=== PATIENT | female | born 1995 | race Caucasian/White ===

== ENCOUNTER 2016-10-19 08:37 | Emergency (ER) | payer OTHER ==
--- NOTE | 2016-10-19 08:38 | ED AMS/SEIZURE/WEAK/DIZZY ---
History of Present Illness General Chief Complaint: Seizure Stated Complaint: BIBA SEIZURE Past History Travel History Traveled to [place] past 21 day No Progress Plan of Care: Orders Procedure Date/time Status URINE DRUGS OF ABUSE 10/19 837 Active URINE 10/19 837 Active Departure Departure Condition: Stable Departure Forms: Customer Survey General Discharge Information
[2016-10-19] MEDS ORDERED: TRINESSA TABLE1 EACH PO (08:53)
[2016-10-19] MEDS ORDERED: EXCEDRIN EXTRA1 EACH PO (10:06)
== END 2016-10-19 09:00 | disposition admitted as inpatient to this hospital (09) ==
LOC: ERH 08:37 → EDBD 08:37 → ERH 09:00
DX: R56.9 Unspecified convulsions (principal); Z53.21 Procedure and treatment not carried out due to patient leaving prior to being seen by health care provider
CPT/HCPCS: 80307; 81025

== ENCOUNTER 2016-10-19 08:41 | Emergency (ER) | payer OTHER ==
[~2016-10-19] VITALS: Ht 167.6 cm; Wt 72.6 kg
--- NOTE | 2016-10-19 08:44 | ED AMS/SEIZURE/WEAK/DIZZY ---
History of Present Illness General Chief Complaint: Seizure Stated Complaint: BIBA SEIZURE Source: patient, EMS Exam Limitations: no limitations Vital Signs & Intake/Output Vital Signs & Intake/Output ED Intake and Output 10/20 0000 10/19 1200 Intake Total 1100 Output Total Balance 1100 Intake, IV 1100 Patient 160 lb Weight Allergies Coded Allergies: No Known Allergies (10/19/16) Reconcile Medications Aspirin/Acetaminophen/Caffeine (Excedrin Extra Strength Caplet) 250 MG-250 MG-65 MG TABLET 1 TAB PO PRN PRN MIGRAINE HEADACHES (Reported) Norgestimate-Ethinyl Estradiol (Trinessa Tablet) [id number] 28 TABLET 1 TAB PO DAILY CONTROL (Reported) Triage Nurses Notes Reviewed? yes Onset: Abrupt Duration: minute(s): (FEW) Timing: single episode today Injury Environment: home Severity: moderate No Modifying Factors: none HPI: 21 year old female ANY from home for chief complaint of witnessed seizure by boyfriend while in bed. He reports they woke up and made eye contact and then her eyes rolled back and she had a 3 minute tonic seizure. He reports she was foaming at the mouth. No incontinence, no tongue biting. EMS reported she was post ictal. Patient reports taking occasional Excedrin PM for sleep but did not take it last night. She denies any benzodiazepine use. She did smoke marijuana last week. No personal history of seizures. Father had a seizure many years ago and was diagnosed with a colloid cyst which was surgically resected. No other family history of seizures. Nothing like this ever happened to her before. Denies any recent illness fever or chills. Denies any difficulty with sleep. Denies any tick bites or rashes. She complains of a little bit of nausea as well as some mild upper abdominal cramping. She complains of gradual onset of headache which feels similar to previous migraines. Currently not on any migraine prophylaxis. Past History Travel History Traveled to [place] past 21 day No Medical History Any Pertinent Medical History? see below for history Neurological: migraine Surgical History Surgical History: non-contributory Psychosocial History What is your primary language Spanish Tobacco Use: Never used Illicit Drug Use: marijuana (LAST WEEK) Family History Family History, If Any: FATHER Relation not specified for: Paternal family history of seizure Hx Contributory? Yes Review of Systems Review of Systems Constitutional: Denies: chills, fever, malaise, weakness. EENTM: Denies: ear pain, throat pain. Respiratory: Denies: short of breath. Cardiovascular: Denies: chest pain. GI: Reports: abdominal pain. Genitourinary: Reports: no symptoms. Musculoskeletal: Reports: no symptoms. Skin: Denies: rash. Neurological/Psychological: Reports: ataxia. Hematologic/Endocrine: Denies: bruising, bleeding, polyuria, polydipsia. Immunologic/Allergic: Denies: splenectomy. All Other Systems: Reviewed and Negative Physical Exam Physical Exam General Appearance: alert, awake, mild distress Head: atraumatic, normal appearance Eyes: Bilateral: normal appearance, PERRL, pale conjunctivae. Ears, Nose, Throat: normal pharynx, hearing grossly normal Neck: normal inspection, supple, full range of motion Respiratory: normal breath sounds, chest non-tender, no respiratory distress Cardiovascular: regular rate/rhythm Peripheral Pulses: 2+ radial (R), 2+ radial (L) Gastrointestinal: normal bowel sounds, soft, non-tender Back: normal inspection, normal range of motion Extremities: normal range of motion Neurologic/Psych: no motor/sensory deficits, awake, alert, oriented x 3 Skin: intact, normal color, warm/dry Core Measures ACS in differential dx? No CVA/TIA Diagnosis: No Severe Sepsis Present: No Septic Shock Present: No Progress Differential Diagnosis: CVA/stroke, drug intoxication, electrolyte imbalance, intracranial mass/tumor, seizure disorder Plan of Care: Orders Procedure Date/time Status URINE DRUGS OF ABUSE 10/19 842 Complete URINE 10/19 842 Complete PROLACTIN 10/19 842 Complete COMPREHENSIVE METABOLIC PANEL 10/19 842 Complete CBC WITHOUT DIFFERENTIAL 10/19 842 Complete Laboratory Tests 10/19/16 0857: Urine Opiates Screen < 100.00, Methadone Screen < 40, Barbiturate Screen < 60, Ur Phencyclidine Scrn < 6.00, Amphetamines Screen < 100, U Benzodiazepines Scrn < 85, Urine Cocaine Screen < 50, Urine Cannabis Screen < 5.00, Urine Test NEGATIVE 10/19/16 0851: Anion Gap 11, Estimated GFR > 60, BUN/Creatinine Ratio 17.1, Glucose 98, Calcium 10.2, Total Bilirubin 0.4, AST 21, ALT 30, Alkaline Phosphatase 45, Total Protein 7.1, Albumin 4.4, Globulin 2.7, Albumin/Globulin Ratio 1.6, Prolactin 95.4 H, CBC w Diff NO MAN DIFF REQ, RBC 4.09 L, MCV 88.2, MCH 29.9, RDW 13.0, MPV 8.3, Gran % 49.4, Lymphocytes % 41.9, Monocytes % 7.3, Eosinophils % 1.1, Basophils % 0.3, Absolute Granulocytes 3.7, Absolute Eosinophils 0.1, Absolute Basophils 0, PUBS MCHC 33.9 labs, utox, upreg, ct head ordered. patient developing headache and mild neck pain. iv tylenol, zofran, fluids ordered. 10:[address] NEGATIVE. NEURO PAGED. MINIMAL RELIEF WITH IV TYLENOL. TORADOL ORDERED. Discussed case with DR. LEAL medical receptionist for neuro. Advised her to follow up with Neuro this week and to hold medications until further evaluation. Follow up and return precautions discussed with patient and family. (PER CAMERON,KRISTINE) Diagnostic Imaging: Viewed by Me: CT Scan. Discussed w/RAD: CT Scan. Radiology Impression: PATIENT: SELINA MATIAS PRESENT AGE: 21 PATIENT ACCOUNT NO: [id number] : 96 LOCATION: [facility] ORDERING PHYSICIAN: KRISTINE ALBARADO MD SERVICE DATE: 10/19/16 EXAM TYPE: CAT - CT HEAD WO IV CONTRAST EXAMINATION: CT HEAD WITHOUT CONTRAST CLINICAL INFORMATION: New onset seizure COMPARISON: None TECHNIQUE: Contiguous axial imaging was performed from the skull base to vertex without intravenous administration of contrast. DLP: 600.71 mGy-cm FINDINGS: There is no evidence of acute intracranial hemorrhage or territorial infarction. No abnormal mass effect or midline shift is seen. Choi to white matter differentiation is well preserved. No extra-axial fluid collections are identified. The ventricles are normal in size. There is no abnormal attenuation within the brain parenchyma. The osseous structures and soft tissues are normal. The mastoid air cells and visualized portions of the paranasal sinuses are well aerated. IMPRESSION: No acute intracranial pathology. DICTATED BY: RAMA LOPEZ MD DATE/TIME DICTATED: 10/19/16937 BANQUET CHEF:KAMILAH DATE/TIME TRANSCRIBED:10/19/16937 CONFIDENTIAL, DO NOT COPY WITHOUT APPROPRIATE AUTHORIZATION. <Electronically signed in Other Vendor System> SIGNED BY: RAMA LOPEZ MD 10/19/16 1009 Initial ED EKG: none Departure Departure Disposition: HOME OR SELF CARE Condition: Stable Clinical Impression Primary Impression: Seizure Referrals: ANA CAMERON,KIKO LEAL MD,ALEJANDRA Additional Instructions: Follow up with the neurologist listsed for futher testing in office. Do not drive until you are cleared to do so by them. Return to the ER for any repeat event. Departure Forms: Customer Survey General Discharge Information
[2016-10-19] MEDS ORDERED: TRINESSA TABLE1 EACH PO (08:53)
[2016-10-19 09:05] LABS: ABSOLUTE BASOPHIL COUNT 0 /CUMM (0.0-0.2); ABSOLUTE EOSINOPHIL COUNT 0.1 /CUMM (0.0-0.7); ABSOLUTE GRANULOCYTE CT 3.7 /CUMM (1.4-6.5); BASOPHIL % 0.3 % (0.0-2.0); EOSINOPHIL % 1.1 % (0-5); GRANULOCYTE % 49.4 % (42.2-75.2); MEAN CORPUSCULAR HGB 29.9 PG (27.0-31.0); MEAN CORPUSCULAR HGB CONC 33.9 G/DL (33.0-37.0); MEAN CORPUSCULAR VOLUME 88.2 FL (81.0-99.0); MEAN PLATELET VOLUME 8.3 FL (7.4-10.4); PLATELET COUNT 241 /CUMM (130-400); RED BLOOD CELL CT 4.09 /CUMM (4.20-5.40); WHITE BLOOD CELL COUNT 7.5 /CUMM (4.8-10.8)
[2016-10-19] MEDS ORDERED: EXCEDRIN EXTRA1 EACH PO (10:06)
--- NOTE | 2016-10-19 10:09 | CT SCAN REPORT ---
EXAMINATION: CT HEAD WITHOUT CONTRAST CLINICAL INFORMATION: New onset seizure COMPARISON: None TECHNIQUE: Contiguous axial imaging was performed from the skull base to vertex without intravenous administration of contrast. DLP: 600.71 mGy-cm FINDINGS: There is no evidence of acute intracranial hemorrhage or territorial infarction. No abnormal mass effect or midline shift is seen. Choi to white matter differentiation is well preserved. No extra-axial fluid collections are identified. The ventricles are normal in size. There is no abnormal attenuation within the brain parenchyma. The osseous structures and soft tissues are normal. The mastoid air cells and visualized portions of the paranasal sinuses are well aerated. IMPRESSION: No acute intracranial pathology.
[2016-10-19 11:01] VITALS: BP 129/75
== END 2016-10-19 11:08 ==
LOC: ERH 08:41
PROVIDERS: Emergency Medicine
DX: R56.9 Unspecified convulsions (principal); F12.10 Cannabis abuse, uncomplicated
CPT/HCPCS: 80307; 81025; 96365; 96375; J0131; J1885; J2405

== ENCOUNTER 2018-03-31 20:40 | Inpatient (IN) | payer OTHER ==
[~2018-03-31] VITALS: Ht 167.6 cm; Wt 81.7 kg
[~2018-03-31 20:40] MED LIST: EXCEDRIN EXTRA1 EACH PO; TRINESSA TABLE1 EACH PO
[2018-03-31] MEDS ORDERED: KEPPRA750 M1 PO (21:11)
[2018-03-31] MEDS ORDERED: TRILEPTAL300 M1 PO (21:11)
[2018-03-31 21:16] LABS: ABSOLUTE BASOPHIL COUNT 0 /CUMM (0.0-0.2); ABSOLUTE EOSINOPHIL COUNT 0.1 /CUMM (0.0-0.7); ABSOLUTE GRANULOCYTE CT 5.9 /CUMM (1.4-6.5); ABSOLUTE LYMPH COUNT 3.7 /CUMM (1.2-3.4); ABSOLUTE MONOCYTE COUNT 0.6 /CUMM (0.10-0.60); BASOPHIL % 0.3 % (0.0-2.0); EOSINOPHIL % 1.2 % (0-5); GRANULOCYTE % 57.1 % (42.2-75.2); HEMATOCRIT 38.3 % (37-47); MEAN CORPUSCULAR HGB 29.9 PG (27.0-31.0); MEAN CORPUSCULAR HGB CONC 34.2 G/DL (33.0-37.0); MEAN CORPUSCULAR VOLUME 87.6 FL (81.0-99.0); MEAN PLATELET VOLUME 8.6 FL (7.4-10.4); PLATELET COUNT 302 /CUMM (130-400); RBC DISTRIBUTION WIDTH 13.7 % (11.5-14.5); RED BLOOD CELL CT 4.37 /CUMM (4.20-5.40); WHITE BLOOD CELL COUNT 10.4 /CUMM (4.8-10.8)
--- NOTE | 2018-03-31 21:23 | ED AMS/SEIZURE/WEAK/DIZZY ---
History of Present Illness General Chief Complaint: Seizure Stated Complaint: " SEIZURE" Source: patient, family Exam Limitations: no limitations Vital Signs & Intake/Output Vital Signs & Intake/Output Vital Signs Date Time Temp Pulse Resp B/P B/P Pulse O2 O2 Flow FiO2 Mean Ox Delivery Rate 04/01 0051 97.9 73 20 120/68 96 Room Air 04/01 0048 Room Air 03/31 2227 68 18 113/54 99 Room Air 03/31 2045 99.2 117 20 132/68 95 Room Air ED Intake and Output 04/01 0000 03/31 1200 Intake Total Output Total Balance Patient 160 lb Weight Weight Reported by Patient Measurement Method Allergies Coded Allergies: tretinoin (From RETIN-A) (HOT AND FLUSHED, DYSPNEA 03/31/18) Reconcile Medications Levetiracetam (Keppra) 750 MG TABLET 1 TAB PO BID SEIZURES (Reported) Oxcarbazepine (Trileptal) 300 MG TABLET 1 TAB PO BID SEIZURES (Reported) Triage Note: PT ARRIVED AT THE ED BY CAR WITH MOTHER AND BROTHER. PT WAS IN THE FRONT SEAT OF THE VEHICLE CRYING AND WAS SHAKING IN A JERKING MOTION. PT'S BROTHER STATED TAKING TRILEPTAL ON THURSDAY AND HAS taken her medications this morning and usually is Trileptal 300 mg every 12 hours and Keppra 750 every 12 hours. She is scheduled to see a new neurologist to find out why she continues to have seizures as the past workup which included MRI CT scan was noncontributory BEEN ON KEPPRA FOR A LONG TIME FOR HER SEIZURES. PT'S BROTHER STATED THAT SHE HAS HAD 3-4 EPISODES LIKE THIS TONIGHT WHERE SHE WOULD BEGIN STARING BLANKLY AND THEN HER BODY WOULD GO INTO A JERKING MOTION BUT WOULD NOT LOSE CONSCIOUSNESS. Triage Nurses Notes Reviewed? yes Onset: Last week Duration: hour(s): Timing: multiple episodes today Injury Environment: home Severity: moderate Severity Numbers: 4 No Modifying Factors: none Patient currently breastfeeds: No HPI: HAS taken her medications this morning and usually is Trileptal 300 mg every 12 hours and Keppra 750 every 12 hours. She is scheduled to see a new neurologist to find out why she continues to have seizures as the past workup which included MRI CT scan was noncontributory BEEN ON KEPPRA FOR A LONG TIME FOR HER SEIZURES. PT'S BROTHER STATED THAT SHE HAS HAD 3-4 Past History Travel History Traveled to [place] past 21 day No Medical History Any Pertinent Medical History? see below for history (seizure disorder) Neurological: migraine EENT: NONE Cardiovascular: NONE Respiratory: NONE Gastrointestinal: NONE Hepatic: NONE Renal: NONE Musculoskeletal: NONE Psychiatric: NONE Endocrine: NONE Blood Disorders: NONE Cancer(s): NONE Surgical History Surgical History: non-contributory Psychosocial History What is your primary language Ukrainian Family History Family History, If Any: FATHER Relation not specified for: Paternal family history of seizure Hx Contributory? No Review of Systems Review of Systems Constitutional: Reports: see HPI (emotional stress per mom). Respiratory: Denies: no symptoms. All Other Systems: Reviewed and Negative Physical Exam Physical Exam General Appearance: well developed/nourished (crying with some stuttering) Head: atraumatic, normal appearance Eyes: Bilateral: normal appearance (crying). Ears, Nose, Throat: normal ENT inspection, hearing grossly normal Neck: normal inspection, supple, full range of motion Respiratory: normal breath sounds, chest non-tender, no respiratory distress Cardiovascular: tachycardia Gastrointestinal: soft, non-tender Extremities: normal range of motion (no evidence of injury) Neurologic/Psych: no motor/sensory deficits (very anxious crying), awake, alert Skin: intact, normal color, warm/dry Core Measures ACS in differential dx? No CVA/TIA Diagnosis No Sepsis Present: No Sepsis Focused Exam Completed? No Progress Differential Diagnosis: arrythmia (anxiety possible drug side eff), seizure disorder, anxiety possible seizure possible drug side effect Plan of Care: Orders Procedure Date/time Status Regular Diet 04/01 B Active Precautions 04/01 222 Active Weight 04/01 43 Complete Weight 04/01 41 Complete Vital Signs 04/01 41 Active Teach/Educate 04/01 41 Active Pain Treatment and Response 04/01 41 Active Nutritional Intake, Monitor 04/01 41 Active Isolation 04/01 41 Active Intake & Output 04/01 41 Active Patient Care Conference 04/01 41 Active Activity/Ambulation 04/01 41 Active Intake & Output 04/01 001 Active ELECTROENCEPHALOGRAM 03/31 2256 Active Pathway - chart 03/31 2255 Active House Staff 03/31 2255 Active Patient Data 03/31 2255 Active Code Status 03/31 2255 Active ED Holding Orders 03/31 2242 Active Admit to inpatient 03/31 2242 Active Vital Signs 03/31 2242 Complete Code Status 03/31 2242 Complete Patient Data 03/31 2213 Active URINE 03/31 2044 Complete URINE DRUG SCREEN FOR ER ONLY 03/31 2044 Complete URINALYSIS 03/31 2044 Complete TROPONIN LEVEL 03/31 2044 Complete PROLACTIN 03/31 2044 Complete MAGNESIUM 03/31 2044 Complete ETHANOL 03/31 2044 Complete COMPREHENSIVE METABOLIC PANEL 03/31 2044 Complete CBC WITHOUT DIFFERENTIAL 03/31 2044 Complete EKG 03/31 2044 Active VTE Mechanical Prophylaxis 03/31 UNK Active Vital Signs 03/31 UNK Active Seizure Precautions 03/31 UNK Active Activity/Ambulation 03/31 UNK Active Current Medications Sig/Lanie Start time Last Medication Dose Stop Time Status Admin Heparin Sodium 5,000 UNIT Q8 04/01 0600 AC (Porcine) Acetaminophen 650 MG Q6P PRN 03/31 2300 AC (Tylenol) Levetiracetam 750 MG BID 03/31 225 AC 03/31 (Keppra) 235 Oxcarbazepine 300 MG BID 03/31 2257 AC 03/31 (Trileptal 150MG Tab) 2359 Laboratory Tests 03/31/18 2110: Urine Opiates Screen < 100, Methadone Screen < 40, Barbiturate Screen < 60, Ur Phencyclidine Scrn < 6.00, Amphetamines Screen < 100, U Benzodiazepines Scrn < 85, Urine Cocaine Screen < 50, Urine Cannabis Screen > 80.00 H, Urine Color YEL , Urine Clarity CLEAR, Urine pH 7.5, Ur Specific Norris 1.015, Urine Protein NEG, Urine Ketones NEG, Urine Nitrite NEG, Urine Bilirubin NEG, Urine Urobilinogen 0.2, Ur Leukocyte Esterase NEG, Ur Microscopic EXAM NOT REQUIRED, Urine Hemoglobin NEG, Urine Glucose NEG, Urine Test NEGATIVE 03/31/18 2100: Anion Gap 12, Estimated GFR > 60, BUN/Creatinine Ratio 17.1, Glucose 92, Calcium 10.3 H, Magnesium 1.7, Total Bilirubin 0.3, AST 28, ALT 28, Alkaline Phosphatase 59, Troponin I < 0.01, Total Protein 7.8, Albumin 5.0, Globulin 2.8, Albumin/Globulin Ratio 1.8, Prolactin 24.9 H, CBC w Diff NO MAN DIFF REQ, RBC 4.37, MCV 87.6, MCH 29.9, MCHC 34.2, RDW 13.7, MPV 8.6, Gran % 57.1, Lymphocytes % 35.7, Monocytes % 5.7, Eosinophils % 1.2, Basophils % 0.3, Absolute Granulocytes 5.9, Absolute Lymphocytes 3.7 H, Absolute Monocytes 0.6, Absolute Eosinophils 0.1, Absolute Basophils 0, Serum Alcohol < 10.0 Initial ED EKG: normal axis, normal intervals, normal p-waves, normal QRS complex, rhythm (tachycardia sinus) Departure Departure Time of Disposition: 2120 Disposition: STILL A PATIENT Condition: Stable Clinical Impression Primary Impression: Anxiety Secondary Impressions: Drug side effects, Seizure disorder Referrals: Liz Santos DO (PCP/Family) Departure Forms: Customer Survey General Discharge Information Admission Note Spoke With: Casper Jay MD Documentation of Exam: : [Patient is admitted for observation for possible seizure and will be seen by neurology] ED Attending Observation Initial Observation Note: I have seen and personally examined SELINA MATIAS on 03/31/18 at 0. I agree with the current emergency department documentation. The disposition (admission or discharge) is uncertain at this time, she needs a period of observation for the following reason(s): The ED Nurse caring for this patient has been personally informed as to what the patient is being observed for.
--- NOTE | 2018-03-31 22:11 | History & Physical ---
PrakashYary 03/31/18 9850: General Information and HPI MD Statement: I have seen and personally examined SELINA MATIAS and documented this H&P. The patient is a 22 year old F who presented with a patient stated chief complaint of []. Source of Information: patient, family Exam Limitations: no limitations History of Present Illness: 22 year old female with PMH migraine headaches, anxiety, seizure disorder dx October 2016 presenting s/p 3-4 witnessed seizures today around 20:00. Patient's mother and brother at bedside and gave most of history even though the patient is able to answer questions appropriately. Patient called her mother around 20: 00 complaining of nausea and 'feeling weird'. She states she gets these sx prior to sz. The brother came to the room and witnessed the patient throwing her upper extremities up and down repeatedly "as though she was having a tandrum ". The patient did not lose consciousness,loss of urine or stool. She reports difficulty speaking during these episodes, racing thoughts, and brother states she seemed to almost have her eyes roll back in her head, but did not. She was immediately able to speak clearly after the episode ceased. EMS was called and the patient reportedly was screaming, "I feel like I'm going to ". Patient has been worked up last year for origin of sz, but nothing has been identified. She went to see a new neurologist last week; Dr. Wes Topete MD at [place]. She was started on Trileptal 300mg bid in addition to her Keppra 750mg bid. Of note, mother states her daughter is under a lot of stress and she has had sz during high stress situations in the past. Patient was recently unemployed in Sep. She had a sz in September; two sz in January; two sz in February. She is a daily marijuana user and last smoked early in the afternoon. Family history significant for father with epilepsy. The father played football, so the family states they are unsure of this contribution to his sz disorder. Allergies/Medications Allergies: Coded Allergies: tretinoin (From RETIN-A) (HOT AND FLUSHED, DYSPNEA 03/31/18) Home Med list Levetiracetam (Keppra) 750 MG TABLET 1 TAB PO BID SEIZURES (Reported) Oxcarbazepine (Trileptal) 300 MG TABLET 1 TAB PO BID SEIZURES (Reported) Past History Travel History Traveled to [place] past 21 day No Medical History Neurological: migraine EENT: NONE Cardiovascular: NONE Respiratory: NONE Gastrointestinal: NONE Hepatic: NONE Renal: NONE Musculoskeletal: NONE Psychiatric: NONE Endocrine: NONE Blood Disorders: NONE Cancer(s): NONE Surgical History Surgical History: non-contributory Past Family/Social History Family History Relations & Conditions if any FATHER Relation not specified for: Paternal family history of seizure Psychosocial History Where do you live? Home Who Do You Live With? brother Services at Home: None Primary Language: Portuguese Smoking Status: Never Smoked ETOH Use: denies use Illicit Drug Use: marijuana, UTD (daily smoker) Employment History Employment Unemployed (lost job in September 2017) Review of Systems Review of Systems Constitutional: Reports: malaise. EENTM: Reports: no symptoms. Cardiovascular: Reports: no symptoms. Respiratory: Reports: no symptoms. GI: Reports: nausea. Denies: abdominal pain, constipation, diarrhea, vomiting. Genitourinary: Reports: no symptoms. Musculoskeletal: Reports: no symptoms. Skin: Reports: no symptoms. Neurological/Psychological: Reports: confusion, tonic-clonic seizures. Exam & Diagnostic Data Last 24 Hrs of Vital Signs/I&O Vital Signs Date Time Temp Pulse Resp B/P B/P Pulse O2 O2 Flow FiO2 Mean Ox Delivery Rate 04/01 0051 97.9 73 20 120/68 96 Room Air 04/01 0048 Room Air 03/31 2227 68 18 113/54 99 Room Air 03/31 2045 99.2 117 20 132/68 95 Room Air Intake & Output 04/01 0800 04/01 0000 03/31 1600 Intake Total 300 Output Total 200 Balance 100 Intake, Oral 300 Output, Urine 200 Patient 180 lb 160 lb Weight Weight Bed scale Reported by Patient Measurement Method Physical Exam General Appearance Alert, Oriented X3, Cooperative, No Acute Distress, patient has a flat affect and does not make eye contact. She allows her mother and brother to speak for her. Skin No Rashes Skin Temp/Moisture Exam: Warm/Dry HEENT Atraumatic, PERRLA Neck Supple Cardiovascular Regular Rate, Normal S1, Normal S2, No Murmurs Lungs Clear to Auscultation Abdomen Normal Bowel Sounds, Soft, No Tenderness Neurological Normal Speech, Strength at 5/5 X4 Ext, Normal Tone, Sensation Intact Extremities No Edema, Normal Pulses Assessment/Plan Assessment: 22 year old female with PMH migraine headache and sz disorder dx October 2016 presenting with 3-4 witnessed sz today despite taking her sz medications. Of note she was started on Trileptal 300mg bid on week ago in addition to Keppra 750mg bid. She will be admitted to the general medicine service for further care of the following: Problem List: 1. Seizure Admission Data: VS T99.2 P117 RR20 BP132/68 Sat 95%RA Labs: WBC 10.4 H/H 13.1/38.3 Na 132 K4.2 BUN/Cr 12/0.7 Prolactin elevated 24.9 EKG: sinus tachycardia Utox: positive for cannibis UA: negative #Seizure-may be stress induced as patient with reported stress precipitating sz in past. She may not tolerate this new medication and will need to discuss this sz episode with her neurologist. Marijuana use prior to sz may have contributed. -Continue current sz medications -Sz precautions in room; bed padding; monitor patient -EEG -Neurology Consult DVT Prophylaxis: heparin/ALPS/ambulation Code Status: full code As Ranked By This Provider Problem List: 1. Seizure disorder Core Measures/Misc (04/26) Acute Coronary Syndrome ACS Diagnosis: No Congestive Heart Failure Congestive Heart Failure Diagnosis No Cerebrovascular Accident CVA/TIA Diagnosis: No VTE (View Protocol) VTE Risk Factors Acute Medical Illness No Mechanical VTE Prophylaxis d/t N/A MechProphylax Ordered No VTE Pharm Prophylaxis d/t NA PharmProphylax ordered Sepsis (View protocol) Sepsis Present: No If YES complete Sepsis Event Note If YES complete Sepsis Event Note Reddy Livingston 04/01/18 0021: Core Measures/Misc (04/26) Sepsis (View protocol) If YES complete Sepsis Event Note If YES complete Sepsis Event Note Resident Review Statement Resident Statement: examined this patient, discussed with internetworking technician, agreed with internetworking technician, discussed with family, reviewed EMR data (avail), discussed with nursing , discussed with case mgmt, reviewed images, amended to note Other Findings: This is a 22-year-old female past medical history significant for migraines, seizure disorder marijuana use, brought in by family after an unwitnessed seizure. Patient was diagnosed with seizures in 2016. She has been taking Keppra 750 twice daily. She has 2 episodes of seizures in January and February 2018. She started following new neurologist at [facility] Dr Harvey, recently started on Trileptal 300 mg every 12 hours. Also planning to get MRI as an outpatient. Patient and family member reported 3-4 episodes of seizures at around 8 PM. She felt nauseous before the event. She had jerking movements of upper extremities. Denied any loss of consciousness, no loss of bladder or bowel, no tongue bite. She is completely aware of events. Episode lasted for couple of minutes. Patient brother stated that she has 3-4 episodes of seizures. She had postictal confusion. Patient felt that she is about to during that episode of seizures. Of note family reports that she is under lot of stress recently. She lost her job. Patient has family history of seizures in father. Outpatient workup for seizures including MRI, CT, EEG was normal. Review of systems was negative except for above. She denied any focal neurologic deficits, numbness, tingling, Focal weakness, sensory deficits. She denied smoking and alcohol abuse. However she reports illicit drug abuse marijuana. Vitals afebrile, heart rate 117, respiratory rate 20, blood pressure 132/60, saturating at 95 on room air Labs CBCs and BEP normal limit Urine analysis normal U tox positive for cannabis Prolactin 24.9 EKG sinus tach, rate 112, no acute ST-T wave changes --------- 1. Partial simple seizures Patient presented after unwitnessed 3-4 episodes of seizures without loss of consciousness. As per family description she has partial seizure involving upper extremity without any loss of consciousness. She has postictal confusion. She denied any focal neurologic deficits, numbness, tingling, Focal weakness, sensory deficits. * Admit to GEN med * Seizures most possibly secondary to emotional stress and anxiety. One of the possibilities from marijuana use. * Monitor vitals every shift * Seizure precautions * Continue Keppra 750 twice daily * Continue Trileptal 300 twice daily * Aspiration precautions * Neurology consult in the a.m. * Follow-up EEG Migraine headaches-Tylenol as needed U tox positive for cannabis Full code regular diet DVT prophylaxis subcu heparin Pain pathway Dimitry Jay MD,[place] 04/01/18 0335: Core Measures/Misc (04/26) Sepsis (View protocol) If YES complete Sepsis Event Note If YES complete Sepsis Event Note Attending MD Review Statement Attending Statement Attending MD Statement: examined this patient, discuss w/resident/PA/PLANT CLERK, agreed w/resident/PA/PLANT CLERK Attending Assessment/Plan: Patient is seen and examined independently by me. Care plan discussed with medical scheduler and/or resident. I agree with the physical exam findings and plan of care as outlined above with the following changes and additions. 22 yo F with history of migraine, seizure diagnosed 10/2016, presented with jerking movement. Patient has been on Keppra 750 mg BID and recently saw a new neurologist in [place] and added Trileptal 300 mg BID. According to patient's mother, patient has recently unemployed and going through a lot of emotional stress which she does not want to go in detail. At about 8 pm, she felt nausea ( which is her typical prodromal symptom). Her brother went to the room and saw her eyes are almost rolling back, her arms are jerking like she is throwing a tantrum with racing thoughts. She is conscious the whole time with no tongue biting or incontinence. She last smoked MJ early afternoon but denies other drug or alcohol use. In the ED, prolactin 24.9. Alcohol <10. Urine cannabis >80. Patient is admitted to Gen Med for possible seizure. Check EEG and neuro consult. Continue Keppra and Trileptal. [place] Jay MD FACP
[2018-04-01 00:51] VITALS: BP 120/68
[2018-04-01 06:13] VITALS: BP 100/54
--- NOTE | 2018-04-01 06:39 | PN- Housestaff ---
See Addendum Subjective Follow-up For: Seizure Subjective: I saw the patient's morning, she was sleeping in her bed. I woke her up, she was alert and oriented 3, in no acute distress. She did not have any major complaints overnight. Also the nurse did not report any complaints overnight. The way the patient describes the previous seizures, they were generalized tonic clonic seizures with postictal phase, but the last seizure that the patient and her mother describe, looks like to be simple partial seizure, focal seizure with retained awareness, or they can be pseudoseizures. She has a started oxcarbazepine from March 28, 2018, and has been taking it for the past 4 days. She did not report any urinary or fecal incontinence at any episodes of the seizure. But she reports that she has always had postictal phase after all episodes of seizures. Review of Systems Constitutional: Reports: see HPI. Objective Last 24 Hrs of Vital Signs/I&O Vital Signs Date Time Temp Pulse Resp B/P B/P Pulse O2 O2 Flow FiO2 Mean Ox Delivery Rate 04/01 0613 97.4 66 18 100/54 99 Room Air 04/01 0051 97.9 73 20 120/68 96 Room Air 04/01 0048 Room Air 03/31 2227 68 18 113/54 99 Room Air 03/31 2045 99.2 117 20 132/68 95 Room Air Intake & Output 04/01 0800 04/01 0000 03/31 1600 Intake Total 540 Output Total 200 Balance 340 Intake, Oral 540 Output, Urine 200 Patient 180 lb 160 lb Weight Weight Bed scale Reported by Patient Measurement Method Physical Exam General Appearance: Alert, Oriented X3, Cooperative, No Acute Distress Skin: No Rashes Skin Temp/Moisture Exam: Warm/Dry HEENT: Atraumatic Neck: Supple, No JVD Cardiovascular: Regular Rate, Normal S1, Normal S2 Lungs: Clear to Auscultation, Normal Air Movement Abdomen: Normal Bowel Sounds, Soft, No Tenderness Neurological: Normal Speech, Normal Tone Extremities: No Clubbing, No Cyanosis, No Edema, Normal Pulses, No Tenderness/ Swelling Vascular: Normal Pulses, Pulses Symmetrical Assessment/Plan Assessment: 22 year old female with PMH migraine headache and sz disorder dx October 2016 presenting with 3-4 witnessed sz today despite taking her sz medications. Of note she was started on Trileptal 300mg bid on week ago in addition to Keppra 750mg bid. Neurologist was contacted by the night team, and we are awaiting a consult from them. EEG supposed to be done today. Seizure:may be stress induced as patient with reported stress precipitating seizure in past. She may not tolerate this new medication and will need to discuss this seizure episode with her neurologist. Marijuana use prior to seizure may have contributed. She has been under stress lately. Dr. Márquez saw the patient, appreciate the consult, probably the recent events were pseudoseizures. The patient is discharged with follow-up of neurologist. Plan: Continue current antiepileptic medications, Seizure precautions in room; bed padding; monitor patient, EEG, Neurology Consult placed we are awaiting the consult. Problem List: 1. Seizure disorder Pain Ratin Pain Location: Not applicable Pain Goal: Remain pain free Pain Plan: Not applicable Tomorrow's Labs & Rationales: Not applicable
[2018-04-01 13:56] VITALS: BP 98/51
--- NOTE | 2018-04-01 14:44 | ELECTROENCEPHALOGRAM REPORT ---
Electroencephalogram Report Electroencephalogram Results Date of service: 04/01/18 Attending MD: Roc Alcala MD Publications Inspector: Mitchel EEG Number: [id number] Test Utilizes: 10-20 system, 21 lead 18 channel digital recording Pertinent Hx/Physical/Neuro Findings/Clin Diagnosis: 22 year old with a year and a half of new onset seizures, on Keppra and started 3 days ago on low dose Trileptal, presenting with multiple seizures without LOC. Inpatient Medications: Current Medications Sig/Lanie Start time Last Medication Dose Route Stop Time Status Admin Acetaminophen 650 MG Q6P PRN 03/31 2300 AC PO Heparin Sodium 5,000 UNIT Q8 04/01 0600 AC 04/01 (Porcine) SC 0556 Levetiracetam 750 MG BID 04/01 0900 AC 04/01 PO 0924 Levetiracetam 750 MG BID 03/31 2257 DC 03/31 PO 2359 Oxcarbazepine 300 MG BID 03/31 2257 AC 04/01 PO 0924 Interpretation: The recording demonstrates the normal frequency gradient during wakefulness, faster frequencies in the beta range up front and slower alpha posteriorly. There is overall good symmetry between the hemisphere without a clear focal slowing. During sleep some vertex waves are seen within the central regions. Otherwise no paroxysmal sharps or spikes are appreciated. Impression: Normal recording in the awake and drowsy states.
--- NOTE | 2018-04-01 14:56 | Cons- Neurology ---
General Information and HPI Consulting Request Date of Consult: 04/01/18 Requested By: Roc Alcala MD Reason for Consult: Seizures. Source of Information: patient, family Exam Limitations: no limitations History of Present Illness: This is a pleasant 22 year old right handed woman who was diagnosed with a seizure disorder 1.5 years ago. At first she suffered from one seizure a month around her period but this picked up last May at which point she saw Dr. Ivey and was placed no Keppra. More recently this summer the seizures picked up again. She therefore decided to seek out an Epileptologist at [place]. After seeing one last week she was scheduled for an MRI bella 3T seizure protocol and EEG. She was also started on Trileptal with the intent of switching away from Keppra. However, yesterday while at home she suffered 3-4 events. Her events consisted of four limb tremoring while sitting without loss of tone and without loss of consciousness. The patient could talk during the seizure. According to her mom these were different then her usual nocturnal seizures in which she jerks, looses consciousness and foams at the mouth, sometimes biting her tongue. She denies any alcohol use, lack of sleep or illnesses. She has a family history of epilepsy in her father. However, he has not been around since childhood and she does not recall ever seeing him have a seizure. Allergies/Medications Allergies: Coded Allergies: tretinoin (From RETIN-A) (HOT AND FLUSHED, DYSPNEA 03/31/18) Home Med List: Levetiracetam (Keppra) 750 MG TABLET 1 TAB PO BID SEIZURES (Reported) Oxcarbazepine (Trileptal) 300 MG TABLET 1 TAB PO BID SEIZURES (Reported) Current Medications: Current Medications Sig/Lanie Start time Last Medication Dose Route Stop Time Status Admin Acetaminophen 650 MG Q6P PRN 03/31 2300 AC PO Heparin Sodium 5,000 UNIT Q8 04/01 0600 AC 04/01 (Porcine) SC 0556 Levetiracetam 750 MG BID 04/01 0900 AC 04/01 PO 0924 Levetiracetam 750 MG BID 03/31 2257 DC 03/31 PO 2359 Oxcarbazepine 300 MG BID 03/31 2257 AC 04/01 PO 0924 Review of Systems Review of Systems: As per HPI. Otherwise negative. Past History Travel History Traveled to [place] past 21 day No Medical History Blood Transfusion Hx: No Neurological: migraine, seizure EENT: NONE Cardiovascular: NONE Respiratory: NONE Gastrointestinal: NONE Hepatic: NONE Renal: NONE Musculoskeletal: NONE Psychiatric: NONE Endocrine: NONE Blood Disorders: NONE Cancer(s): NONE Surgical History Surgical History: non-contributory Family History Relations & Conditions If Any: FATHER Relation not specified for: Paternal family history of seizure Psychosocial History Where Do You Live? Home Who Do You Live With? brother Services at Home: None Primary Language: Cambodian Smoking Status: Never Smoked ETOH Use: denies use Illicit Drug Use: marijuana, UTD (daily smoker) Employment History Employment: Unemployed (lost job in September 2017) Exam & Diagnostic Data Vital Signs and I&O Vital Signs Date Time Temp Pulse Resp B/P B/P Pulse O2 O2 Flow FiO2 Mean Ox Delivery Rate 04/01 1356 97.5 61 18 98/51 98 Room Air 04/01 0613 97.4 66 18 100/54 99 Room Air 04/01 0051 97.9 73 20 120/68 96 Room Air 04/01 0048 Room Air 03/31 2227 68 18 113/54 99 Room Air 03/31 2045 99.2 117 20 132/68 95 Room Air Intake & Output 04/01 1600 04/01 0800 04/01 0000 Intake Total 910 540 Output Total 200 Balance 910 340 Intake, IV 10 Intake, Oral 900 540 Number 0 Bowel Movements Output, Urine 200 Patient 180 lb 160 lb Weight Weight Bed scale Reported by Patient Measurement Method Physical Exam: General: The patient is in no distress. Pleasant and cooperative. MSE: Alert and oriented 3. Good attention and concentration. Good short-term memory and fund of knowledge reflected through our conversation. Language is fluent with good comprehension and repetition. Cardiovascular: S1 and S2 are normal, regular rate and rhythm, and normal pedal pulses. Vision: Visual lara are intact. Neurological: Extra ocular movements intact, NOEMY, face is symmetric, tongue midline, uvula raises equally in the midline, V1-V3 sensation to touch is intact and equal bilaterallty, sternocleidomastoid and trapezius are strong on both sides, muscles of mastication are strong. No dysarthria noted. Motor exam reveals no abnormality of strength. Power is 5-5 throughout the distribution distally and proximally. Sensory exam did not reveal any deficits to touch, temperature, vibration and proprioception. Reflexes are symmetric bilaterally BUT HAS +Dandre on left. Cerebellar exam does not reveal any dysmetria. Rapid alternating movements are intact bilaterally. Gait is steady with normal base. Last 48 Hours of Lab Results: Laboratory Tests 03/310 2100 Chemistry Sodium (137 - 145 mmol/L) 136 L Potassium (3.5 - 5.1 mmol/L) 4.2 Chloride (98 - 107 mmol/L) 98 Carbon Dioxide (22 - 30 mmol/L) 26 Anion Gap (5 - 16) 12 BUN (7 - 17 mg/dL) 12 Creatinine (0.5 - 1.0 mg/dL) 0.7 Estimated GFR (>60 ml/min) > 60 BUN/Creatinine Ratio (7 - 25 %) 17.1 Glucose (65 - 99 mg/dL) 92 Calcium (8.4 - 10.2 mg/dL) 10.3 H Magnesium (1.6 - 2.3 mg/dL) 1.7 Total Bilirubin (0.2 - 1.3 mg/dL) 0.3 AST (14 - 36 U/L) 28 ALT (9 - 52 U/L) 28 Alkaline Phosphatase (<127 U/L) 59 Troponin I (< 0.11 ng/ml) < 0.01 Total Protein (6.3 - 8.2 g/dL) 7.8 Albumin (3.5 - 5.0 g/dL) 5.0 Globulin (1.9 - 4.2 gm/dL) 2.8 Albumin/Globulin Ratio (1.1 - 2.2 %) 1.8 Prolactin (3.0 - 18.6 ng/mL) 24.9 H Hematology CBC w Diff NO MAN DIFF REQ WBC (4.8 - 10.8 /CUMM) 10.4 RBC (4.20 - 5.40 /CUMM) 4.37 Hgb (12.0 - 16.0 G/DL) 13.1 Hct (37 - 47 %) 38.3 MCV (81.0 - 99.0 FL) 87.6 MCH (27.0 - 31.0 PG) 29.9 MCHC (33.0 - 37.0 G/DL) 34.2 RDW (11.5 - 14.5 %) 13.7 Plt Count (130 - 400 /CUMM) 302 MPV (7.4 - 10.4 FL) 8.6 Gran % (42.2 - 75.2 %) 57.1 Lymphocytes % (20.5 - 51.1 %) 35.7 Monocytes % (1.7 - 9.3 %) 5.7 Eosinophils % (0 - 5 %) 1.2 Basophils % (0.0 - 2.0 %) 0.3 Absolute Granulocytes (1.4 - 6.5 /CUMM) 5.9 Absolute Lymphocytes (1.2 - 3.4 /CUMM) 3.7 H Absolute Monocytes (0.10 - 0.60 /CUMM) 0.6 Absolute Eosinophils (0.0 - 0.7 /CUMM) 0.1 Absolute Basophils (0.0 - 0.2 /CUMM) 0 Toxicology Urine Opiates Screen (>2000 NG/ML) < 100 Methadone Screen (>300 NG/ML) < 40 Barbiturate Screen (>200 NG/ML) < 60 Ur Phencyclidine Scrn (>25 NG/ML) < 6.00 Amphetamines Screen (>1000 NG/ML) < 100 U Benzodiazepines Scrn (>200 NG/ML) < 85 Urine Cocaine Screen (>300 NG/ML) < 50 Urine Cannabis Screen (>50 NG/ML) > 80.00 H Serum Alcohol (<10 MG/DL) < 10.0 Urines Urine Color (YEL,AMB,STR) YEL Urine Clarity (CLEAR) CLEAR Urine pH (5.0 - 8.0) 7.5 Ur Specific Hospers (1.001 - 1.035) 1.015 Urine Protein (NEG,<30 MG/DL) NEG Urine Ketones (NEG) NEG Urine Nitrite (NEG) NEG Urine Bilirubin (NEG) NEG Urine Urobilinogen (0.1 - 1.0 EU/dl) 0.2 Ur Leukocyte Esterase (NEG) NEG Ur Microscopic EXAM NOT REQUIRED Urine Hemoglobin (NEG) NEG Urine Glucose (N MG/DL) NEG Urine Test NEGATIVE Imaging/Other Studies: Normal NCHCT. EEG - read as normal. Assessment/Plan Assessment: 22 year old woman with a seizure disorder that may have mixed true epileptogenic seizures and functional seizures. 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 This does not mean she does not have epilepsy. 40% of patients with epilepsy also illustrate pseudoseizures. Recommendations: Safe to be discharged. Has a plan from her epileptologist. Should obtain MRI brain and EEG at [place]. Should continue as planned to increase Trileptal. Cannot drive. Discussed with mother. Will ask epileptologist for versed nasal spray. YC Consult Acknowledgment - Thank you for your consult request.
--- NOTE | 2018-04-01 15:22 | Patient Discharge Instructions ---
Discharge Instructions General Discharge Information You were seen/treated for: Seizures You had these procedures: EEG Watch for these problems: Abnormal movements suspicious for seizure Special Instructions: Please call 911 or your PCP or neurologist if you have more episodes of seizure Please follow-up with your neurologist for optimization of fever antiepileptic medications. Please do not drive till your neurologist clears you for driving Diet Continue normal diet: Yes Activity Full Activity/No Limits: Yes Acute Coronary Syndrome Inclusion Criteria At DC or during hospital stay patient has or had the following: ACS DIAGNOSIS No Discharge Core Measures Meds if any: Prescribed or Continued at Discharge Meds if any: NOT Prescribed or Continued at Discharge Congestive Heart Failure Inclusion Criteria At DC or during hospital stay patient has or had the following: CHF DIAGNOSIS No Discharge Core Measures Meds if any: Prescribed or Continued at Discharge Meds if any: NOT Prescribed or Continued at Discharge Cerebrovascular accident Inclusion Criteria At DC or during hospital stay patient has or had the following: CVA/TIA Diagnosis No Discharge Core Measures Meds if any: Prescribed or Continued at Discharge Meds if any: NOT Prescribed or Continued at Discharge Venous thromboembolism Inclusion Criteria VTE Diagnosis No VTE Type NONE VTE Confirmed by (Test) NONE Discharge Core Measures - Per Current guidelines, there needs to be overlap - treatment for the first 5 days of Warfarin therapy. - If discharged on Warfarin prior to 5 days of - overlap therapy, the patient will need to be - assessed for post discharge needs including - *Post discharge parental anticoagulation - *Warfarin and/or parental anticoagulation education - *Follow up date to check INR post discharge At least 5 days overlap therapy as Inpatient No Meds if any: Prescribed or Continued at Discharge Note: Overlap Therapy is Warfarin and Anticoagulant Meds if any: NOT Prescribed or Continued at Discharge
--- NOTE | 2018-04-01 17:55 | Discharge Summary ---
Visit Information Visit Dates Admission Date: 03/31/18 Discharge Date: 04/01/18 Hospital Course Course Attending Physician: Roc Alcala MD Primary Care Physician: Liz Santos DO Consulting Request: Consulting Specialty: Neurology Consulting Physician: Anastacio Márquez MD Reason for Consult: Possible seizure Hospital Course: 22 year old female with PMH migraine headache and sz disorder dx October 2016 presenting with 3-4 witnessed sz today despite taking her sz medications. Of note she was started on Trileptal 300mg bid on week ago in addition to Keppra 750mg bid. Neurologist was contacted by the night team, and we are awaiting a consult from them. EEG supposed to be done today. Seizure:may be stress induced as patient with reported stress precipitating seizure in past. She may not tolerate this new medication and will need to discuss this seizure episode with her neurologist. Marijuana use prior to seizure may have contributed. She has been under stress lately. Dr. Márquez saw the patient, appreciate the consult, probably the recent events were pseudoseizures. The patient is discharged with follow-up of neurologist. Plan: Continue current antiepileptic medications, Seizure precautions in room; bed padding; monitor patient, EEG, Neurology Consult placed we are awaiting the consult. Allergies: Coded Allergies: tretinoin (From RETIN-A) (HOT AND FLUSHED, DYSPNEA 03/31/18) Significant Procedures: EE Interpretation: The recording demonstrates the normal frequency gradient during wakefulness, faster frequencies in the beta range up front and slower alpha posteriorly. There is overall good symmetry between the hemisphere without a clear focal slowing. During sleep some vertex waves are seen within the central regions. Otherwise no paroxysmal sharps or spikes are appreciated. Impression: Normal recording in the awake and drowsy states. Disposition Summary Disposition Principal Diagnosis: Seizure disorder Additional Diagnosis: Pseudoseizure Discharge Disposition: home or self care Discharge Instructions General Discharge Information Code Status: Full Code Patient's Diet: Regular diet Patient's Activity: As tolerated Follow-Up Instructions/Appts: Please follow-up with your neurologist Please follow-up with your PCP Please do not drive until your neurologist has cleared you for driving Medications at Discharge Discharge Medications: Continue taking these medications: Levetiracetam (Keppra) 750 MG TABLET 1 Tablet ORAL TWICE DAILY Comments: Last Taken: 04/01/18 Time: 9:20 am Oxcarbazepine (Trileptal) 300 MG TABLET 1 Tablet ORAL TWICE DAILY Comments: Last Taken: 04/01/18 Time: 9:24 am Copies To: Wes Topete M.D.; Liz Santos DO
== END 2018-04-01 15:52 | DRG 101 ==
LOC: ERH 20:40 → 2NB 22:42 → ERHI 22:42 → ENRESERV 23:40 → 2NB 04-01 00:37
PROVIDERS: Physician Assistant Medical
DX: G40.909 Epilepsy, unspecified, not intractable, without status epilepticus (principal); F41.9 Anxiety disorder, unspecified; G43.909 Migraine, unspecified, not intractable, without status migrainosus; F12.90 Cannabis use, unspecified, uncomplicated
CPT/HCPCS: ERO; 80307; 81003; 81025; 93005; 93010; 95816; G0480; J1644; J1953